=== PATIENT | male | born 1970 | race African-American/Black ===

== ENCOUNTER 2022-12-23 09:19 | Emergency (ER) | payer OTHER ==
[~2022-12-23] VITALS: Ht 193 cm; Wt 104.0 kg
[2022-12-23] MEDS ORDERED: ONDANSETRON HCL 4MG/2ML INJ IV STA (10:33)
[2022-12-23] MEDS ORDERED: KETOROLAC 30MG/ML VIAL IV STA (10:33)
[2022-12-23] MEDS ORDERED: SODIUM CHLORIDE 0.9% 1,000 ML IV ONE (10:45)
[2022-12-23 11:13] LABS: CLARITY URINE CLEAR (CLEAR); COLOR URINE YELLOW (YELLOW); KETONES URINE 3+ (NEGATIVE); LEUKOCYTE ESTERASE URINE NEGATIVE (NEGATIVE); NITRITE URINE NEGATIVE (NEGATIVE); OCCULT BLOOD URINE 1+ (NEGATIVE); PH URINE 8.5 (4.5-8.0); PROTEIN URINE TRACE (NEGATIVE); SPECIFIC GRAVITY URINE 1.025 (1.005-1.030)
[2022-12-23 11:26] VITALS: BP 156/94
[2022-12-23 11:29] LABS: BASOPHILS % 0.3 % (0.0-2.0); EOSINOPHILS % 0.1 % (0.0-5.0); HEMATOCRIT. 43.2 % (42.0-52.0); HEMOGLOBIN. 14.8 g/dL (14.0-18.0); LYMPHOCYTES % 13.1 % (20.0-50.0); MEAN CORPUSCULAR HEMOGLOBIN 32.1 pg (28.0-32.0); MEAN CORPUSCULAR VOLUME 93.9 fL (80.0-94.0); MEAN PLATELET VOLUME 7.8 fl (7.4-10.4); NEUTROPHILS % 81.5 % (40.0-76.0); PLATELET 218 x1000/uL (130-400); RED CELL DISTRIBUTION WIDTH 13.7 % (11.6-14.6)
[2022-12-23 12:01] LABS: CHLORIDE 105 mEq/L (98-107)
[2022-12-23] MEDS ORDERED: TAMSULOSIN HCL 0.4MG SR CAPSULE PO SCH (13:00)
[2022-12-23] MEDS ORDERED: CEFTRIAXONE 2 G in DEXTROSE 5% WATER 50 ML IV SCH (13:00)
[2022-12-23] MEDS ORDERED: CEPH500T MT (13:02)
[2022-12-23] MEDS ORDERED: HYDR-4001 MT ×3 (13:03→15:51)
[2022-12-23] MEDS ORDERED: TAMS-11 MT (13:04)
[2022-12-23] MEDS ORDERED: ONDA4TAB50 MT (13:17)
== END 2022-12-23 14:41 | disposition home or self-care (01) ==
LOC: ER 09:19 → CANBEDREQ 13:44 → ER 14:41
DX: N20.0 Calculus of kidney (principal); N39.0 Urinary tract infection, site not specified; N17.9 Acute kidney failure, unspecified; N13.9 Obstructive and reflux uropathy, unspecified; K57.90 Diverticulosis of intestine, part unspecified, without perforation or abscess without bleeding; Z87.442 Personal history of urinary calculi
CPT/HCPCS: 36415; 74176; 80053; 81003; 83690; 85025; 96361; 96365; 96375; 99285; J0696; J1885; J2405; J7030; J7060

== ENCOUNTER 2024-03-05 20:09 | Emergency (ER) | payer SELFPAY ==
[~2024-03-05] VITALS: Ht 190.5 cm; Wt 90.0 kg
[~2024-03-05 20:09] MED LIST: CEPH500T MT; HYDR-4001 MT; ONDA4TAB50 MT; TAMS-11 MT
[2024-03-05 20:20] VITALS: O2SAT 100
[2024-03-05 21:37] VITALS: BP 130/75; PULSE 63; RESP 16; TEMP 98.2
== END 2024-03-05 21:37 | disposition left against medical advice (07) ==
LOC: ER 20:09
DX: F12.10 Cannabis abuse, uncomplicated (principal); E78.00 Pure hypercholesterolemia, unspecified
CPT/HCPCS: 71045; 93005; 99283